=== PATIENT | male | born 1940 | race Caucasian/White ===

== ENCOUNTER → 2016-10-18 | Emergency (ER) | payer MEDICARE ==
[~2016-10-18] MED LIST: Tetan/Diph/Pertus SYR(Tdap)* 0.5 ML SYR(BOOSTRIX) use SYR IM ONE
--- NOTE | 2016-10-18 13:02 | RAD ---
Indication: Fall, head contusion. CT brain was performed without IV contrast. Ventricular structures are midline. No midline shift is noted. The extra-axial spaces are unremarkable. There is no evidence of intracranial mass or hemorrhage. No other high or low density lesions are present. Bony calvaria mastoid air cells are unremarkable. IMPRESSION: There is no evidence of intracranial mass or hemorrhage.
--- NOTE | 2016-10-18 13:07 | RAD ---
Indication: Fall, left-sided head injury. CT of the facial bones was obtained in the axial plane. Sagittal and coronal reconstructed images were obtained. The mandible demonstrates no fracture. The maxilla demonstrates no fracture. Pterygoid plates are intact. Zygomatic arch is intact. Pterygoid plates intact. There is opacification of the left ethmoid air cells as well as the left frontal sinus. No fracture is identified. Nasal arch is intact without evidence of fracture. IMPRESSION: No fracture of the facial bones is identified.
--- NOTE | 2016-10-18 13:09 | RAD ---
INDICATION: Neck pain. Fall. COMPARISON: CT cervical spine July 15, 2015 TECHNIQUE: Noncontrast axial source images was performed from the skull base to the thoracic inlet. Coronal and and sagittal reformatted images were generated. FINDINGS: Vertebrae: There is no fracture or acute focal bony lesion. There are arthritic changes with prominent facet arthropathy, posterior spondylitic ridge formation, and degenerative disc disease at C5-C7. There is bilateral foraminal narrowing at C5-C6. Similar findings were present previously. Alignment: The craniocervical junction appears normal. The cervical vertebrae are normally aligned. Central Canal: There are no significant CT abnormalities of the central canal or foramina. MR imaging is a more sensitive method to evaluate the canal and foramina. Intervertebral disc spaces: The remaining disc spaces are maintained. Brain: The visualized brain appears unremarkable. Soft tissues: The visualized soft tissue elements of the neck are unremarkable. The prevertebral soft tissues appear normal. The lung apices are clear. 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 NO ACUTE FINDINGS.
[2016-10-18 13:23] LABS: Hematocrit 41 % (42-52); Hemoglobin 13.6 g/dl (14.0-18.0); Mean Corpuscular HGB Conc 34 g/dl (31-36); Mean Corpuscular Hemoglobin 32 pg (27-31); Mean Corpuscular Volume 95 fL (80-94); Mean Platelet Volume 7 um3 (7.4-10.4); Red Blood Count 4.26 10^6/ul (4.0-5.4); Red Cell Distribution Width 13 % (10.5-15); White Blood Count 9.9 10^3/ul (3.5-10.8)
[2016-10-18 13:37] LABS: Albumin 3.5 g/dL (3.2-5.2); BUN/Creatinine Ratio 16.3 (8-20); Calcium 8.7 mg/dL (8.6-10.3); EGFR African American 89.1 (>60); EGFR Non-African American 69.3 (>60); Total Bilirubin 0.6 mg/dL (0.2-1.0); Total Protein 6.5 g/dL (6.4-8.9)
[2016-10-18 13:55] LABS: Urine Bilirubin Negative (Negative); Urine Glucose Negative (Negative); Urine Nitrite Negative (Negative)
[2016-10-18 15:01] VITALS: BP 109/57
--- NOTE | 2016-10-27 13:19 | ED ---
Salty Collazo Billy, scribed for Hunter Payne MD on 10/18/16 at 1219 . Head Injury - HPI Summary HPI Summary: Patient is a 76 year-old male coming to [facility] presenting with a simple mechanical fall early this morning at 0730. He said it was dark and he hit his left forehead on a table, where there is now a small laceration. Pain severity 5 /10. He denies pain elsewhere on the body. Positive LOC. Denies bloodthinners. He states he had one EtOH beverage last night. - History Of Current Complaint Chief Complaint: EDHeadInjury Stated Complaint: FALL Time Seen by Provider: 10/18/16 12:15 Hx Obtained From: Patient Mechanism Of Injury: Fall From A Standing Position Onset/Duration: Started Hours Ago Onset of Pain: Hours Severity Currently: Moderate Severity Initially: Moderate Pain Intensity: 5 Pain Scale Used: 0-10 Numeric Location of Head Injury: Frontal Associated Signs And Symptoms: LOC Duration Unknown - Allergies/Home Medications Allergies/Adverse Reactions: Allergies Allergy/AdvReac Type Severity Reaction Status Date / Time No Known Allergies Allergy Verified 10/18/16 10:32 PMH/Surg Hx/FS Hx/Imm Hx Endocrine/Hematology History: Reports: Hx Anemia Denies: Hx Anticoagulant Therapy, Hx Blood Disorders, Hx Blood Transfusions, Hx Bone Marrow Disease, Hx Diabetes, Hx Systemic Lupus Erythematosus, Hx Sickle Cell Disease, Hx Thyroid Disease, Hx Unexplained Bleeding, Other Endocrine/ Hematological Disorders Cardiovascular History: Reports: Hx Hypercholesterolemia, Hx Hypotension, Hx Hypertension Denies: Hx Aneurysm, Hx Angina, Hx Angioplasty, Hx Auto Implanted Cardiovert Defib, Hx Cardiac Arrest, Hx Cardiomegaly, Hx Congenital Heart Disease, Hx Congestive Heart Failure, Hx Coronary Artery Disease, Hx Deep Vein Thrombosis, Hx Pacemaker/ICD, Hx Peripheral Vascular Disease, Hx Rheumatic Fever, Hx Valvular Heart Disease, Other Cardiovascular Problems/Disorders Respiratory History: Reports: Hx Chronic Obstructive Pulmonary Disease (COPD) Denies: Hx Asthma, Hx Chronic Bronchitis, Hx Cystic Fibrosis, Hx Lung Cancer , Hx Pleural Effusion, Hx Pneumonia, Hx Pulmonary Edema, Hx Pulmonary Embolism, Hx Seasonal Allergies, Hx Sleep Apnea, Other Respiratory Problems/Disorders GI History: Reports: Hx Diverticulosis, Hx Hiatal Hernia Denies: Hx Cirrhosis, Hx Crohn's Disease, Hx Gall Bladder Disease, Hx Gastroesophageal Reflux Disease, Hx Gastrointestinal Bleed, Hx Irritable Bowel, Hx Jaundice, Hx Obstructive Bowel, Hx Ileostomy, Hx Pyloric Stenosis, Hx Ulcer, Other GI Disorders History: Denies: Hx Acute Renal Failure, Hx Benign Prostatic Hyperplasia, Hx Chronic Renal Failure, Hx Dialysis, Hx Kidney Infection, Hx Kidney Stones, Hx Renal Disease, Other Problems/Disorders Musculoskeletal History: Reports: Hx Arthritis, Hx Bursitis - in shoulders, very limited L arm movement Denies: Hx Back Problems - s/p compression fx, date unknown, Hx Congenital Bone Abnormalities, Hx Fibromyalgia, Hx Gout, Hx Orthopedic Injury, Hx Osteoporosis, Hx Scoliosis, Hx Tendonitis, Other Musculoskeletal History Sensory History: Reports: Hx Cataracts - 03/06/13: Cataract removal surgery, Hx Contacts or Glasses - 03/06/13: Reading glasses, Hx Deafness, Hx Hearing Problem Denies: Hx Eye Injury, Hx Eye Prosthesis, Hx Glaucoma, Hx Macular Degeneration, Hx Vision Problem, Hx Hearing Aid, Other Sensory Impairments Opthamlomology History: Reports: Hx Cataracts - 03/06/13: Cataract removal surgery, Hx Contacts or Glasses - 03/06/13: Reading glasses Denies: Hx Eye Injury, Hx Eye Prosthesis, Hx Glaucoma, Hx Macular Degeneration, Hx Vision Problem, Other Sensory Impairments Neurological History: Denies: Hx Dementia, Hx Developmental Delay, Hx Headaches, Hx Migraine, Hx Nerve Disease, Hx Seizures, Hx Spinal Cord Injury, Hx Transient Ischemic Attacks (TIA), Other Neuro Impairments/Disorders Psychiatric History: Reports: Hx Anxiety Denies: Hx Attention Deficit Hyperactivity Disorder, Hx Eating Disorder, Hx Depression, Hx Panic Disorder, Hx Post Traumatic Stress Disorder, Hx Inpatient Treatment, Hx Community Mental Health Tx, Hx Schizophrenia, Hx Bipolar Disorder , Hx Suicide Attempt, Hx of Violent Episodes Against Others, Hx Substance Abuse , Other Psychiatric Issues/Disorders - Surgical History Surgery Procedure, Year, and Place: neck surgery Hx Anesthesia Reactions: No Infectious Disease History: No Infectious Disease History: Denies: Hx Clostridium Difficile, Hx Hepatitis, Hx Human Immunodeficiency Virus (HIV), Hx Shingles, Hx Tuberculosis, Traveled Outside the [place] in Last 30 Days - Family History Known Family History: Positive: Cardiac Disease - Social History Alcohol Use: Weekly Substance Use Type: Reports: None Smoking Status (MU): Light Every Day Tobacco Smoker Review of Systems Positive: Other - left head laceration Neurological: Other - positive LOC All Other Systems Reviewed And Are Negative: Yes Physical Exam - Summary Physical Exam Summary: VITAL SIGNS: Reviewed. GENERAL: Patient is an elderly fragile male who is lying comfortable in the stretcher. Patient is not in any acute respiratory distress. HEAD AND FACE: Small abrassion in the left orbital area. No ecchymosis, hematomas or skull depressions. No sinus tenderness. EYES: PERRLA, EOMI x 2, No injected conjunctiva, no nystagmus. No photophobia. EARS: Hearing grossly intact. Ear canals and tympanic membranes are within normal limits. MOUTH: Oropharynx within normal limits. NECK: Supple, trachea is midline, no adenopathy, no JVD, no carotid bruit, no c- spine tenderness, neck with full ROM. No meningeal signs, no Kernig's or brudzinskis signs. CHEST: Symmetric, no tenderness at palpation LUNGS: Clear to auscultation bilaterally. No wheezing or crackles. CVS: Regular rate and rhythm, S1 and S2 present, no murmurs or gallops appreciated. ABDOMEN: Soft, non-tender. No signs of distention. No rebound no guarding, and no masses palpated. Bowel sounds are normal. EXTREMITIES: FROM in all major joints, no edema, no cyanosis or clubbing. NEURO: Alert and oriented x 3. No acute neurological deficits. Speech is normal and follows commands. SKIN: Dry and warm Triage Information Reviewed: Yes Vital Signs On Initial Exam: Initial Vitals Temp Pulse Resp BP Pulse Ox 98.3 F 72 16 120/61 99 10/18/16 10:16 10/18/16 10:16 10/18/16 10:16 10/18/16 10:16 10/18/16 10:16 Vital Signs Reviewed: Yes - [place] Coma Scale Coma Scale Total: 15 Diagnostics - Vital Signs Vital Signs Temp Pulse Resp BP Pulse Ox 10/18/16 11:00 61 16 102/54 98 10/18/16 10:30 62 19 104/56 100 10/18/16 10:22 62 20 98 10/18/16 10:16 98.3 F 72 16 120/61 99 - Laboratory Lab Results: Lab Results 10/18/16 10/18/16 Range/Units 13:12 13:12 WBC 9.9 (3.5-10.8) 10^3/ul RBC 4.26 (4.0-5.4) 10^6/ul Hgb 13.6 L (14.0-18.0) g/dl Hct 41 L (42-52) % MCV 95 H (80-94) fL MCH 32 H (27-31) pg MCHC 34 (31-36) g/dl RDW 13 (10.5-15) % Plt Count 194 (150-450) 10^3/ul MPV 7 L (7.4-10.4) um3 Neut % (Auto) 67.6 (38-83) % Lymph % (Auto) 14.1 L (25-47) % [place] % (Auto) 11.0 H (1-9) % Eos % (Auto) 6.5 H (0-6) % Baso % (Auto) 0.8 (0-2) % Absolute Neuts (auto) 6.7 (1.5-7.7) 10^3/ul Absolute Lymphs (auto) 1.4 (1.0-4.8) 10^3/ul Absolute Monos (auto) 1.1 H (0-0.8) 10^3/ul Absolute Eos (auto) 0.6 (0-0.6) 10^3/ul Absolute Basos (auto) 0.1 (0-0.2) 10^3/ul Absolute Nucleated RBC 0 10^3/ul Nucleated RBC % 0 Sodium 137 (133-145) mmol/L Potassium 4.0 (3.5-5.0) mmol/L Chloride 105 (101-111) mmol/L Carbon Dioxide 30 (22-32) mmol/L Anion Gap 2 (2-11) mmol/L BUN 17 (6-24) mg/dL Creatinine 1.04 (0.67-1.17) mg/dL Est GFR ( Amer) 89.1 (>60) Est GFR (Non-Af Amer) 69.3 (>60) BUN/Creatinine Ratio 16.3 (8-20) Glucose 94 (70-100) mg/dL Calcium 8.7 (8.6-10.3) mg/dL Total Bilirubin 0.60 (0.2-1.0) mg/dL AST 15 (13-39) U/L ALT 11 (7-52) U/L Alkaline Phosphatase 88 (34-104) U/L Total Protein 6.5 (6.4-8.9) g/dL Albumin 3.5 (3.2-5.2) g/dL Globulin 3.0 (2-4) g/dL Albumin/Globulin Ratio 1.2 (1-3) Result Diagrams: 10/18/16 13:12 10/18/16 13:12 Lab Statement: Any lab studies that have been ordered have been reviewed, and results considered in the medical decision making process. - Radiology c-spine Xray Interpretation: No Acute Changes Radiology Interpretation Completed By: Radiologist maxillofacial Xray Interpretation: No Acute Changes Radiology Interpretation Completed By: Radiologist - CT brain CT Interpretation: No Acute Changes CT Interpretation Completed By: Radiologist - EKG 1000 EKG Interpretation: NSR 62 bpm, no ST elevation Head Injury Course/Dx Assessment/Plan: Patient is a 76 year-old male coming to [facility] presenting with a simple mechanical fall early this morning at 0730. He said it was dark and he hit his left forehead on a table, where there is now a small laceration. Pain severity 5/10. He denies pain elsewhere on the body. Positive LOC. Denies bloodthinners. He states he had one EtOH beverage last night. Bloodwork WNL. CT brain shows no intracranial mass or hemorrhage. C-spine CT show moderate to advanced mid lower cervical osteoarthritis, no acute findings. Maxillofacial CT shows no fracture of the facial bones. In the ER course, he only has an abrasion to the left eyebrow. We cleaned the abrasion, he was given Boostrix vaccine for tetanus booster. The patient is feeling better, ambulating, and is A &Ox3 and hemodynamically stable. He will be discharged home to follow up with PCP. Head contusion instructions given. - Diagnoses Differential Diagnosis/HQI/PQRI: Cerebral Contusion, Cervical Sprain, Concussion Without LOC, Contusion, Hematoma, Laceration, Orbital Fracture, Skull Fracture, Zygomatic Fracture Provider Diagnoses: Scalp contusion, Accidental fall, Skin abrasion Discharge - Discharge Plan Condition: Stable Disposition: HOME Patient Education Materials: Contusion in Adults (ED), Scalp Contusion in Adults (ED) Referrals: Jordy Anguiano MD [Primary Care Provider] - The documentation as recorded by the Salty carpio Billy accurately reflects the service I personally performed and the decisions made by Elmer nick Walter, MD.
== END | disposition home or self-care (01) ==
LOC: ED 10:16
DX: S00.03XA Contusion of scalp, initial encounter (principal); S00.212A Abrasion of left eyelid and periocular area, initial encounter; W18.00XA Striking against unspecified object with subsequent fall, initial encounter; Y92.9 Unspecified place or not applicable; D64.9 Anemia, unspecified; J44.9 Chronic obstructive pulmonary disease, unspecified; F41.9 Anxiety disorder, unspecified; F17.200 Nicotine dependence, unspecified, uncomplicated
CPT/HCPCS: 36415; 70450; 70486; 72125; 80053; 81003; 85025; 90715; 93005; 99283

== ENCOUNTER 2016-12-27 20:01 | Emergency (ER) | payer MEDICARE ==
[2016-12-27 20:55] VITALS: BP 138/68
[2016-12-27] MEDS ORDERED: Naproxen TAB* 250 MG PO ONE ×2 (21:37→21:52)
[2016-12-27] MEDS ORDERED: Cephalexin CAP* 500 MG PO ONE ×2 (21:37→21:54)
--- NOTE | 2016-12-27 21:47 | UC ---
Lower Extremity/Ankle HPI - HPI Summary HPI Summary: Patient arrives to with CC of right great toe inflammation, redness and pain x 3 weeks. He states he first noticed it after coming in from the cold and it has been present ever since. He notes to decreased range of motion. Denies previous history of gout or cellulitis in the toe. He has a cut atop his second toe which could have created a cellulitis in the toe. He is on a baby aspirin. Denies other significant health problems but sees his PCP regularly. Denies fever or feeling ill. - History of Current Complaint Chief Complaint: UCLowerExtremity Stated Complaint: TOE COMPLAINT Time Seen by Provider: 12/27/16 21:23 Hx Obtained From: Patient Onset/Duration: Sudden Onset Severity Initially: Moderate Severity Currently: Moderate Pain Intensity: 4 Pain Scale Used: 0-10 Numeric Aggravating Factor(s): Ambulation Alleviating Factor(s): Rest Able to Bear Weight: Yes - Risk Factors Gout Risk Factors: Age Over 40, Hyperlipidemia DVT Risk Factors: Recent Trauma Septic Arthritis Risk Factor: Extremes of Age - Allergies/Home Medications Allergies/Adverse Reactions: Allergies Allergy/AdvReac Type Severity Reaction Status Date / Time No Known Allergies Allergy Verified 12/27/16 20:55 PMH/Surg Hx/FS Hx/Imm Hx Previously Healthy: Yes Endocrine History Of: Denies: Diabetes, Thyroid Disease Cardiovascular History Of: Reports: Cardiac Disorders, Hypertension Denies: Pacemaker/ICD, Congestive Heart Failure, Deep Vein Thrombosis Respiratory History Of: Reports: COPD Denies: Asthma, Pneumonia, Pulmonary Embolism GI/ History Of: Denies: Ulcer, Gastrointestinal Bleed, Gall Bladder Disease, Kidney Stones, Renal Disease Neurological History Of: Denies: TIA, CVA, Dementia, Seizures, Migraine Psychological History Of: Reports: Anxiety Denies: Depression, Bipolar Disorder, Schizophrenia Cancer History Of: Denies: Lung Cancer Other History Of: Negative For: Anticoagulant Therapy - Surgical History Surgical History: None Surgery Procedure, Year, and Place: neck surgery - Family History Known Family History: Positive: Cardiac Disease - Social History Occupation: Retired Lives: With Family Alcohol Use: Daily Alcohol Amount: 1 drink daily Substance Use Type: None Smoking Status (MU): Light Every Day Tobacco Smoker Type: Cigarettes Amount Used/How Often: 3-4 cigs daily - Immunization History Most Recent Tetanus Shot: unknown Review of Systems Skin: Other - erythematous, warm, edematous right large toe x 3 weeks Eyes: Negative Respiratory: Negative Cardiovascular: Negative Neurovascular: Decreased Sensation Musculoskeletal: Negative Neurological: Negative Psychological: Negative All Other Systems Reviewed And Are Negative: Yes Physical Exam Triage Information Reviewed: Yes Appearance: Well-Appearing, Well-Nourished Vital Signs: Initial Vital Signs Temp 98.1 F 12/27/16 20:47 Pulse 72 12/27/16 20:47 Resp 18 12/27/16 20:47 BP 138/68 12/27/16 20:47 Pulse Ox 100 12/27/16 20:47 Vital Signs Reviewed: Yes Eye Exam: Normal Eyes: Positive: Conjunctiva Clear Neck exam: Normal Neck: Positive: Supple, No Lymphadenopathy Respiratory Exam: Normal Respiratory: Positive: Lungs clear Cardiovascular Exam: Normal Cardiovascular: Positive: RRR Musculoskeletal: Positive: Strength Limited @, ROM Limited @ Neurological Exam: Normal Psychological Exam: Normal Psychological: Positive: Normal Response To Family Skin Exam: Normal Lower Extremity Course/Dx - Course Course Of Treatment: Physical exam performed. D/t patient presentation of 3 week history acute onset after trauma (cold weather) to the foot, and small cut atop the second toe of right foot, it is difficult to distinguish between cellulitis and gout. Patient denies previous gout. Patient given keflex and naproxen to cover both possibilities. Dr. Ambrosio consulted. Patient encouraged to follow up with PCP regarding symptoms. - Differential Dx/Diagnosis Differential Diagnosis/HQI/PQRI: Cellulitis, Gout, Infection, Tendonitis Provider Diagnoses: gout Discharge - Discharge Plan Condition: Stable Disposition: HOME Prescriptions: Cephalexin CAP* [Keflex CAP*] 500 mg PO QID #28 cap Naproxen [Naproxen EC] 500 mg PO TID #30 tab Patient Education Materials: Cellulitis (ED), Gout (ED) Referrals: Jordy Anguiano MD [Primary Care Provider] - Additional Instructions: Take antibiotic as prescribed for possible cellulitis. Four times daily for 7 days. Take Naproxen 500mg three times daily for gout. Follow up with your PCP this week or early next week for further evaluation and medicine changes as needed.
[2016-12-27] MEDS ORDERED: Naproxen TAB* 250 MG PO PRN (21:52)
[2016-12-27] MEDS ORDERED: Cephalexin CAP* 250 MG ONE (22:03)
== END 2016-12-27 22:09 | disposition home or self-care (01) ==
LOC: UCCORT 20:01
DX: M10.071 Idiopathic gout, right ankle and foot (principal); F17.210 Nicotine dependence, cigarettes, uncomplicated
CPT/HCPCS: 99213; A9270-GY; G0463